=== PATIENT | female | born 1995 | race Caucasian/White ===

== ENCOUNTER 2017-02-05 01:29 | Emergency (ER) | payer SELFPAY ==
[~2017-02-05] VITALS: Ht 170.2 cm; Wt 70.0 kg
[2017-02-05 01:40] VITALS: BP 125/76
== END 2017-02-05 05:37 | disposition left against medical advice (07) ==
LOC: ED 05:31
DX: F10.120 Alcohol abuse with intoxication, uncomplicated (principal)
CPT/HCPCS: 99283